=== PATIENT | male | born 1965 | race Caucasian/White ===

== ENCOUNTER → 2024-10-15 08:39 | Outpatient (REF) | payer BC, SELFPAY | LOC: HWCARD 08:39 | PROVIDERS: ATTENDING PHYSICIAN Orthopaedic Surgery Hand Surgery; FAMILY PHYSICIAN Family Medicine | DX: Z01.818 Encounter for other preprocedural examination (principal) | CPT/HCPCS: 93005 ==

== ENCOUNTER 2024-10-16 06:21 | Day surgery (SDC) | payer BC, SELFPAY ==
[2024-10-12 15:18] LABS: % Basophils 1.4 % (0-2); % Eosinophils 3.1 % (0-6); % Immature Granulocytes 0.3 % (0-0.5); % Lymphocytes 23.3 % (20.5-51.1); % Monocytes 13.4 % (1.7-9.3); % Neutrophils 58.5 % (42.2-75.2); Absolute Basophils 0.1 10^3/uL (0-0.2); Absolute Eosinophils 0.2 10^3/uL (0-0.7); Absolute Lymphocytes 1.7 10^3/uL (1.2-3.4); Absolute Neutrophils 4.3 10^3/uL (1.4-6.5); Hematocrit 39.2 % (39.0-52.0); Mean Corp Hgb Conc. 33.2 g/dL (33.0-37.0); Mean Corpuscular Hgb 30.2 pg (27.0-31.0); Mean Corpuscular Volume 91.2 fL (80.0-94.0); Mean Platelet Volume 8.4 fL (7.4-10.4); Nucleated Red Blood Cells % 0 % (-); Platelet Count 326 10^3/uL (130-400); Red Cell Dist. Width 13.2 % (11.5-14.5); White Blood Cell Count 7.3 10^3/uL (4.8-10.8)
[2024-10-16] VITALS (8 sets, daily range): BP systolic 121–140; BP diastolic 79–90; BMI 24.7
[2024-10-16] MEDS: CELEBREX 200 MG PO (08:29)
[2024-10-16] MEDS: TYLENOL 1000 MG PO (08:29)
[2024-10-16] MEDS: NORMOSOL-R/PLASMALYTE-A 1000 IV (08:36)
[2024-10-16] MEDS: DILAUDID 0.5 MG IV (12:30)
== END 2024-10-16 14:05 | disposition home or self-care (01) ==
LOC: SDS 06:21
PROVIDERS: ATTENDING PHYSICIAN Orthopaedic Surgery Hand Surgery; FAMILY PHYSICIAN Family Medicine
DX: M75.122 Complete rotator cuff tear or rupture of left shoulder, not specified as traumatic (principal); M75.42 Impingement syndrome of left shoulder
CPT/HCPCS: 29827; 29828; 29826; C1713; 36415; 85025